=== PATIENT | male | born 1975 | race African-American/Black ===

== ENCOUNTER 2022-05-15 17:37 | Emergency (ER) | payer OTHER ==
[~2022-05-15] VITALS: Ht 188 cm; Wt 96.2 kg
[~2022-05-15 17:37] MED LIST: CARV25TA PO; CINA90TA PO
--- NOTE | 2022-05-15 18:15 | NUR ---
Patient is AOx4, c/o 4-5 months of left foot pains. Dr [email or web address].
--- NOTE | 2022-05-15 18:23 | NUR ---
[email or web address], medical screening exam in progress
[2022-05-15] MEDS ORDERED: ONDANSETRON ODT 4 MG TAB.RAPDIS SL ONE (18:45)
[2022-05-15] MEDS ORDERED: SULFAMETH/TRIMETH 800/160 MG TABLET PO ONE (18:45)
[2022-05-15] MEDS ORDERED: HYDROMORPHONE HCL 2 MG TABLET PO ONE (18:45)
[2022-05-15] MEDS ORDERED: SULFAMETH/TRIMETH 800/160 MG TABLET ONE (18:52)
[2022-05-15] MEDS ORDERED: ONDANSETRON ODT 4 MG TAB.RAPDIS ONE (18:52)
[2022-05-15] MEDS ORDERED: HYDROMORPHONE HCL 2 MG TABLET ONE (18:53)
[2022-05-15] MEDS ORDERED: SULF1TAB48 PO (19:49)
[2022-05-15] MEDS ORDERED: OXYC30TA2 PO (19:49)
--- NOTE | 2022-05-15 19:58 | NUR ---
Patient resting in bed, c/o left foot pain, patient was medicated at 1857, updated on of plan of care at this time. No s/s of any distress noted. MD at bedside talking to patient, remains stable for discharge home.
--- NOTE | 2022-05-15 20:06 | NUR ---
ACI given, states understanding, remains stable for discharge.
[2022-05-15 20:07] VITALS: BP 143/84
== END 2022-05-15 20:08 | disposition home or self-care (01) ==
LOC: ER 17:37
DX: G89.29 Other chronic pain (principal); M79.672 Pain in left foot; Z94.0 Kidney transplant status; I10 Essential (primary) hypertension; I48.91 Unspecified atrial fibrillation; Z88.6 Allergy status to analgesic agent; Z79.899 Other long term (current) drug therapy
CPT/HCPCS: A4663; Q0162